=== PATIENT | male | born 1945 | race Caucasian/White ===

== ENCOUNTER 2018-08-11 02:37 | Emergency (ER) | payer MEDICARE, OTHER ==
[~2018-08-11] VITALS: Ht 175.3 cm; Wt 72.6 kg
[~2018-08-11 02:37] MED LIST: AMLODIPINE BESYL5 MG; ASPIRIN325; AZITHROMYCIN 2250 MG PO; CENTRUM SILVER1 EAC2 PO; DIPHENHIST50 MG PO; DOXYCYCLINE 10100 MG PO; FISH OIL 1,0001 EAC5; FISH OIL 1,001000 M2 PO; FLOMAX0.4 MG; IBUPROFEN 800800 M1 PO; KEFLEX250 M1 PO; KEFLEX500 MG PO; LUTEIN20 M1; MUCINEX600 MG PO; NORVASC 2.5 MG2.5 M1 PO; PHENAZOPYRIDIN200 M2 PO; PREDNISONE 10 M10 M1 PO; PROAIR HFA8.5 GM; PROAIR HFA8.5 GM IH; TRIPLE ANTIBIOT30 G2 TP; VITAMINS
[2018-08-11] MEDS ORDERED: PROAIR HFA8.5 GM (02:45)
[2018-08-11] MEDS ORDERED: PREDNISONE50 MG PO (03:22)
[2018-08-11 03:39] VITALS: BP 115/64
--- NOTE | 2018-08-11 15:06 | EKG ---
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
== END 2018-08-11 03:44 | disposition home or self-care (01) ==
LOC: M.ERS 02:37
DX: J98.01 Acute bronchospasm (principal); I10 Essential (primary) hypertension; K21.9 Gastro-esophageal reflux disease without esophagitis; F41.9 Anxiety disorder, unspecified; Z87.891 Personal history of nicotine dependence; Z88.5 Allergy status to narcotic agent; Z88.2 Allergy status to sulfonamides; Z88.8 Allergy status to other drugs, medicaments and biological substances

== ENCOUNTER 2018-11-28 15:31 | Emergency (ER) | payer MEDICARE, OTHER ==
[~2018-11-28] VITALS: Ht 175.3 cm; Wt 74.8 kg
[~2018-11-28 15:31] MED LIST changes: +PREDNISONE50 MG PO
[2018-11-28] MEDS ORDERED: COMBIVENT RESPIM4 GM INH (15:42)
[2018-11-28 15:50] LABS: ABSOLUTE BASOPHILS 0.1 thou/uL (0.0-0.2); ABSOLUTE EOSINOPHILS 0.3 thou/uL (0.0-0.7); ABSOLUTE LYMPHOCYTES 1.4 thou/uL (0.8-5.3); ABSOLUTE MONOCYTES 0.6 thou/uL (0.0-1.2); ABSOLUTE NEUTROPHILS 4.1 thou/uL (1.6-8.1); BASOPHILS 1.4 %; EOSINOPHILS 4.8 %; HEMOGLOBIN 15.2 gm/dL (14.0-18.0); LYMPHOCYTES 21.2 %; MCHC 34.6 g/dL (28.0-37.0); MCV 95.3 fL (80.0-100.0); MONOCYTES 9.2 %; MPV 7.7 fl. (7.2-11.1); NUCLEATED RBCS 0 /100WBC; PLATELET COUNT* 290 thou/uL (150-400); POLYS 63.4 %; RBC 4.62 mil/uL (4.50-6.00); RDW-CV 13.6 % (10.5-14.5); WBC 6.4 thou/uL (4.0-11.0)
[2018-11-28 16:00] LABS: APTT 26.1 Seconds (25.0-31.3); CALCIUM 8.8 mg/dL (8.5-10.1); CREATININE 1.1 mg/dL (0.6-1.3); POTASSIUM 3.2 mmol/L (3.5-5.1); PROTIME 10.7 Seconds (9.20-11.50)
[2018-11-28 16:14] LABS: ALBUMIN 3.6 g/dL (3.4-5.0); MAGNESIUM 1.9 mg/dL (1.8-2.4); TOTAL BILIRUBIN 0.6 mg/dL (<0.1-1.0); TOTAL PROTEIN 7.2 g/dL (6.4-8.2)
[2018-11-28 16:36] VITALS: BP 123/76
--- NOTE | 2018-11-29 14:24 | EKG ---
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1945 Requested By: Fracisco Carbajal Order Number: [id number] MD: Jignesh Ruiz Measurements Intervals [place] Rate: 80 P: 71 [place]: 188 QRS: 17 QRSD: 88 T: 45 QT: 370 QTc: 427 Interpretive Statements Sinus rhythm Atrial premature complexes Baseline wander in lead(s) V3 Compared to ECG 08/11/2018 02:54:12 Atrial premature complex(es) now present Electronically Signed On 11-29-2018 14:24:01 CDT by Jignesh Ruiz [email or web address] <ELECTRONICALLY SIGNED> By: Wilber Ruiz MD, [facility] 11/29/18 1424 1545 1545 Wilber Ruiz MD, [facility] /EPI
== END 2018-11-28 16:38 | disposition home or self-care (01) ==
LOC: M.ERS 15:31
PROVIDERS: Family Medicine
DX: F41.0 Panic disorder [episodic paroxysmal anxiety] (principal); I10 Essential (primary) hypertension; K21.9 Gastro-esophageal reflux disease without esophagitis; Z85.828 Personal history of other malignant neoplasm of skin; Z86.018 Personal history of other benign neoplasm; Z88.5 Allergy status to narcotic agent; Z88.2 Allergy status to sulfonamides; Z88.8 Allergy status to other drugs, medicaments and biological substances; Z87.891 Personal history of nicotine dependence